=== PATIENT | male | born 1950 | race Caucasian/White ===

== ENCOUNTER → 2016-03-05 | Outpatient (CLI) | payer MEDICARE, OTHER ==
[~2016-03-05] VITALS: Ht 177.8 cm; Wt 100.0 kg
[~2016-03-05] MED LIST: CARI350 PO; DEXT1CAP3 PO; HYDR-3971 PO; LISI-662 PO; TERA2 PO
[2016-03-05 09:21] VITALS: BP 123/86
== END | disposition home or self-care (01) ==
LOC: SRCNTR 09:01
PROVIDERS: ATTEND Hospitalist
DX: I10 Essential (primary) hypertension (principal); E78.5 Hyperlipidemia, unspecified; N40.0 Benign prostatic hyperplasia without lower urinary tract symptoms; M48.02 Spinal stenosis, cervical region; G89.4 Chronic pain syndrome; N52.9 Male erectile dysfunction, unspecified; R35.8 Other polyuria; M48.06 Spinal stenosis, lumbar region
CPT/HCPCS: G0463

== ENCOUNTER → 2016-06-26 | Outpatient (CLI) | payer MEDICARE, OTHER ==
[~2016-06-26] VITALS: Ht 177.8 cm; Wt 101.0 kg
[2016-06-26 11:55] VITALS: BP 113/51
== END | disposition home or self-care (01) ==
LOC: SRCNTR 11:51
PROVIDERS: ATTEND Hospitalist
DX: I10 Essential (primary) hypertension (principal); G89.4 Chronic pain syndrome; E78.5 Hyperlipidemia, unspecified; N40.0 Benign prostatic hyperplasia without lower urinary tract symptoms; N52.9 Male erectile dysfunction, unspecified; R35.8 Other polyuria; M21.619 Bunion of unspecified foot; M48.02 Spinal stenosis, cervical region; M48.06 Spinal stenosis, lumbar region
CPT/HCPCS: G0463

== ENCOUNTER → 2016-10-29 | Outpatient (CLI) | payer MEDICARE, OTHER ==
[~2016-10-29] VITALS: Ht 177.8 cm; Wt 100.0 kg
[~2016-10-29] MED LIST changes: -HYDR-3971 PO; +HYDR-4069 PO
[2016-10-29 11:57] VITALS: BP 139/72
== END | disposition home or self-care (01) ==
LOC: SRCNTR 11:24
PROVIDERS: ATTEND Hospitalist
DX: I10 Essential (primary) hypertension (principal); E78.5 Hyperlipidemia, unspecified; G89.4 Chronic pain syndrome; N40.1 Benign prostatic hyperplasia with lower urinary tract symptoms; M21.619 Bunion of unspecified foot; M48.02 Spinal stenosis, cervical region; M48.06 Spinal stenosis, lumbar region
CPT/HCPCS: G0463

== ENCOUNTER → 2017-01-25 | Outpatient (CLI) | payer MEDICARE, OTHER ==
[~2017-01-25] VITALS: Ht 177.8 cm; Wt 101.5 kg
[2017-01-25 11:38] VITALS: BP 150/107
== END | disposition home or self-care (01) ==
LOC: SRCNTR 11:37
PROVIDERS: ATTEND Hospitalist
DX: I10 Essential (primary) hypertension (principal); M48.02 Spinal stenosis, cervical region; M48.061 Spinal stenosis, lumbar region without neurogenic claudication; N40.1 Benign prostatic hyperplasia with lower urinary tract symptoms; G89.4 Chronic pain syndrome; R35.8 Other polyuria
CPT/HCPCS: G0463